=== PATIENT | male | born 1965 | race Caucasian/White ===

== ENCOUNTER 2017-01-06 16:54 | Emergency (ER) | payer OTHER ==
[~2017-01-06] VITALS: Ht 160 cm; Wt 71.5 kg
[~2017-01-06 16:54] MED LIST: ATORVASTATIN CA40 MG PO; BACTRIM,SEPT1 TABLET PO; DAILY VALUE1 EACH PO; DEPAKOTE250 MG PO; FENOFIBRIC ACI135 MG PO; LORATADINE10 M2 PO; OMEGA-31000 M1 PO; OMEPRAZOLE20 M2 PO; ZOLOFT50 MG PO; ZYPREXA15 MG PO
[2017-01-06 18:14] LABS: HEMATOCRIT 35.5 % (38.0-50.0); MCH 25.1 PG (29.0-34.0); MCV 80.9 FL (86-99); MEAN PLAT.VOLUME 10.4 uM^3 (9.0-12.4); PLATELET COUNT 279 K/uL (156-360); RBC DIS.WIDTH-CV 16.1 % (11.8-14.6); RBC DIS.WIDTH-SD 47.8 % (39-53); RED BLOOD COUNT 4.39 M/uL (4.00-5.50); WHITE BLOOD COUNT 5.4 K/uL (4.1-10.2)
[2017-01-06 18:22] LABS: CHLORIDE 107 mEq/L (99-109); POTASSIUM 3.7 mEq/L (3.7-5.4); SODIUM 143 mEq/L (136-147)
[2017-01-06 18:24] LABS: GLUCOSE 115 mg/dL (70-99); INTER. NORMALIZED RATIO 1.1; PROTHROMBIN TIME 11.2 (9.2-11.2); PTT 25.6 (25-32)
[2017-01-06 18:26] LABS: ANION GAP 10 MEQ/L (2-14); TOTAL BILIRUBIN 0.3 mg/dL (0.0-1.0)
[2017-01-06 18:28] LABS: ALKALINE PHOSPHATASE 39 IU/L (3-129); GFR ESTIMATE (CALCULATED) > 59 mL/min/
[2017-01-06 18:29] LABS: UREA NITROGEN (BUN) 15 mg/dL (9-23)
[2017-01-06] MEDS ORDERED: SENOKOT,SENN1 TABLET PO (19:29)
[2017-01-06] MEDS ORDERED: PREPARATION H C51 G1 PR (19:29)
[2017-01-06 19:48] VITALS: BP 114/79
== END 2017-01-06 20:16 | disposition home or self-care (01) ==
LOC: EME 16:54
PROVIDERS: Emergency Medicine
DX: K64.4 Residual hemorrhoidal skin tags (principal); K92.2 Gastrointestinal hemorrhage, unspecified; K21.9 Gastro-esophageal reflux disease without esophagitis; Z88.8 Allergy status to other drugs, medicaments and biological substances
CPT/HCPCS: 80053; 83605; 85027; 85610; 85730; 86900; 86901; 99281; 99285